=== PATIENT | female | born 1990 | race Caucasian/White ===

== ENCOUNTER 2017-04-20 08:23 | Emergency (ER) | payer OTHER ==
[~2017-04-20] VITALS: Ht 157.5 cm; Wt 81.8 kg
[2017-04-20 08:23] VITALS: BP 135/89
[2017-04-20] MEDS ORDERED: MOTRIN800 MG PO (08:37)
[2017-04-20] MEDS ORDERED: FLEXERIL PO (08:37)
[2017-04-20] MEDS ORDERED: TRAMADOL HYDROC50 MG PO (08:37)
== END 2017-04-20 09:00 | disposition home or self-care (01) | DRG 914 ==
LOC: ED 08:23
DX: S49.91XA Unspecified injury of right shoulder and upper arm, initial encounter (principal); F31.9 Bipolar disorder, unspecified; V44.5XXA Car driver injured in collision with heavy transport vehicle or bus in traffic accident, initial encounter; Y92.411 Interstate highway as the place of occurrence of the external cause